=== PATIENT | female | born 1945 | race Two or more races ===

== ENCOUNTER 2017-05-28 07:07 | Outpatient (CLI) | payer OTHER | END 2017-05-28 07:14 | disposition home or self-care (01) | LOC: RX STUDY 07:07 | DX: R19.5 Other fecal abnormalities (principal) ==

== ENCOUNTER 2019-12-27 11:53 | Outpatient (CLI) | payer OTHER | END 2019-12-27 15:00 | disposition home or self-care (01) | LOC: LAB 11:53 | PROVIDERS: ATTEND Psychiatry & Neurology Neurology | DX: R41.3 Other amnesia (principal); R40.4 Transient alteration of awareness; R56.9 Unspecified convulsions ==